=== PATIENT | female | born 1945 | race Caucasian/White ===

== ENCOUNTER → 2017-10-25 | Outpatient (CLI) | payer MEDICARE, OTHER ==
[~2017-10-25] MED LIST: AMBIEN 5 MG TABL5 M1 PO; FLONASE 0.05%50 MCG NASAL; LEVOTHYROXIN0.025 MG PO; MUCINEX TA600 MG/TA2 PO
== END ==
LOC: M.CT 13:06
DX: J32.0 Chronic maxillary sinusitis (principal)

== ENCOUNTER → 2017-12-29 | Outpatient (CLI) | payer MEDICARE, OTHER | LOC: M.ULTRA 12-23 12:12 | DX: I70.8 Atherosclerosis of other arteries (principal); R07.1 Chest pain on breathing; R55 Syncope and collapse; R42 Dizziness and giddiness ==

== ENCOUNTER → 2018-01-18 | Outpatient (CLI) | payer MEDICARE, OTHER | LOC: M.RAD 14:05 | DX: Z12.31 Encounter for screening mammogram for malignant neoplasm of breast (principal); J32.0 Chronic maxillary sinusitis ==

== ENCOUNTER 2018-02-28 14:42 | Emergency (ER) | payer MEDICARE, OTHER ==
[~2018-02-28] VITALS: Ht 165.1 cm; Wt 52.2 kg
[2018-02-28 14:47] VITALS: BP 175/67
== END 2018-02-28 15:31 | disposition home or self-care (01) ==
LOC: M.ERS 14:42
DX: S99.821A Other specified injuries of right foot, initial encounter (principal); Z88.2 Allergy status to sulfonamides; W20.8XXA Other cause of strike by thrown, projected or falling object, initial encounter; Y93.89 Activity, other specified; Y92.89 Other specified places as the place of occurrence of the external cause; Y99.8 Other external cause status

== ENCOUNTER → 2018-08-30 | Outpatient (CLI) | payer MEDICARE, OTHER | LOC: M.CT 08-22 11:11 → M.ULTRA 13:09 → M.CT 13:30 → M.ULTRA 14:00 | DX: Z00.01 Encounter for general adult medical examination with abnormal findings (principal); N63.11 Unspecified lump in the right breast, upper outer quadrant; N63.21 Unspecified lump in the left breast, upper outer quadrant; M85.89 Other specified disorders of bone density and structure, multiple sites; R92.2 Inconclusive mammogram; Z78.0 Asymptomatic menopausal state ==

== ENCOUNTER → 2018-08-30 | Outpatient (CLI) | payer OTHER | LOC: M.CT 13:02 | DX: Z13.6 Encounter for screening for cardiovascular disorders (principal) ==

== ENCOUNTER → 2021-03-19 | Outpatient (CLI) | payer MEDICARE, OTHER | LOC: M.ULTRA 13:00 | PROVIDERS: ATTEND Family Medicine | DX: I65.23 Occlusion and stenosis of bilateral carotid arteries (principal); H34.9 Unspecified retinal vascular occlusion ==

== ENCOUNTER → 2021-08-06 | Outpatient (CLI) | payer MEDICARE, OTHER | LOC: M.MRI 11:14 | PROVIDERS: ATTEND Family Medicine | DX: M43.12 Spondylolisthesis, cervical region (principal); M48.02 Spinal stenosis, cervical region; M25.78 Osteophyte, vertebrae ==